=== PATIENT | male | born 1950 | race Caucasian/White ===

== ENCOUNTER 2023-10-29 05:34 | Day surgery (SDC) | payer MEDICARE ==
--- NOTE | 2023-10-27 21:13 | P.GSHP ---
History of Present Illness H&P Date: 10/27/23 Chief Complaint: Gross hematuria The patient is a 73-year-old white male with a history of metastatic castrate sensitive prostate cancer, treated with androgen deprivation therapy, Erleada, and Xgeva. He also has a history of kidney stones and recently experienced gross hematuria. CT scan showed bilateral renal calculi. Mild left hydronephrosis was noted, due to an 8 mm left UPJ calculus. Alternative treatment options were reviewed, and he has elected to undergo ureteroscopy with laser lithotripsy. - Cardiovascular Cardiovascular: Reports high blood pressure - Genitourinary (Male) Genitourinary: Reports hematuria, Reports kidney stones Past Medical History Past Medical History: Atrial Fibrillation, Cancer, Diabetes Mellitus, Hyperlipidemia, Hypertension Additional Past Medical History / Comment(s): kidney stones, past hx. a-fib 20 yrs. ago, recent dizzy spells & wore heart monitor recently, no problems found, had medication adjustment, hx. prostate cancer & spot found on spine 2019-had radiation & oral chemo History of Any Multi-Drug Resistant Organisms: None Reported Past Surgical History: Heart Catheterization With Stent, Orthopedic Surgery Additional Past Surgical History / Comment(s): 2 stents total, cysto/litho w/stent, arthroscopy right knee Past Anesthesia/Blood Transfusion Reactions: No Reported Reaction Date of Last Stent Placement:: 2019 Smoking Status: Former smoker - Past Family History Mother Family Medical History: No Reported History Medications and Allergies Home Medications Medication Instructions Recorded Confirmed Type Apalutamide [Erleada] 120 mg PO HS 10/27/23 10/27/23 History Aspirin 81 mg PO HS 10/27/23 10/27/23 History Atorvastatin [Lipitor] 40 mg PO HS 10/27/23 10/27/23 History Clopidogrel [Plavix] 75 mg PO DAILY 10/27/23 10/27/23 History dilTIAZem HCL [Cardizem CD] 360 mg PO DAILY 10/27/23 10/27/23 History lisinopriL [Zestril] 2.5 mg PO HS 10/27/23 10/27/23 History metFORMIN HCL [Glucophage] 500 mg PO BID 10/27/23 10/27/23 History Allergies Allergy/AdvReac Type Severity Reaction Status Date / Time Penicillins AdvReac Rash/Hives Verified 10/27/23 15:10 [id number] Reductase AdvReac muscle Verified 10/27/23 15:10 Inhibitor aches Surgical - Exam - General well developed, well nourished, no distress - Respiratory normal respiratory effort - Abdomen Abdomen: soft, non tender, no guarding, no rigid, no rebound - Genitourinary normal penis with no external lesions, testicles non-tender - Psychiatric oriented to time, oriented to person, oriented to place, speech is normal, memory intact Results - Imaging CT scan - abdomen: report reviewed, image reviewed Assessment and Plan (1) Calculus of ureter Status: Acute Code(s): N20.1 - CALCULUS OF URETER SNOMED Code(s): 91803001 (2) Calculus of kidney Status: Acute Code(s): N20.0 - CALCULUS OF KIDNEY SNOMED Code(s): 91430903 Plan: Cystoscopy, left retrograde pyelogram, left ureteroscopy with Holmium laser lithotripsy and stone basketing, left ureteral stent insertion. The procedure has been reviewed in detail with the patient and his . They have been made aware of potential risks, which include anesthesia, bleeding, infection, ureteral injury, and inability to successfully remove the calculus.
[2023-10-29] MEDS ORDERED: LACTATED RINGERS 1,000 ML IV SCH (06:17)
[2023-10-29] MEDS ORDERED: DEXAMETHASONE SOD PHOSPHATE 4 MG/ML 1 ML VIAL IV ONE (06:17)
[2023-10-29] MEDS ORDERED: ONDANSETRON 4 MG/2 ML VIAL IVP ONE (06:17)
[2023-10-29] MEDS ORDERED: MIDAZOLAM 2 MG/2 ML VIAL IV PRN (07:00)
[2023-10-29] MEDS ORDERED: HYDROmorphone 0.5 MG/0.5 ML SYRINGE IVP PRN (07:00)
[2023-10-29 07:02] LABS: Glucose,Whole Blood 149 mg/dL (70-110)
[2023-10-29] MEDS ORDERED: SUCCINYLCHOLINE CHLORIDE 200 MG/10 ML VIAL IV ONE (07:25)
[2023-10-29] MEDS ORDERED: NEOSTIGMINE 1 MG/ML 10 ML VIAL ONE (07:25)
[2023-10-29] MEDS ORDERED: fentaNYL (PF) 50 MCG/ML 2 ML AMP ONE (07:25)
[2023-10-29] MEDS ORDERED: ROCURONIUM 10 MG/ML (5 ML VIAL) IV ONE (07:25)
[2023-10-29] MEDS ORDERED: ePHEDrine 50 MG/ML 1 ML VIAL ONE (07:25)
[2023-10-29] MEDS ORDERED: LIDOCAINE 1% INJ 10MG/ML (20 ML MDV) ONE (07:25)
[2023-10-29] MEDS ORDERED: PROPOFOL 10 MG/ML 20 ML VIAL IV ONE (07:25)
[2023-10-29] MEDS ORDERED: GLYCOPYRROLATE 0.2 MG/ML 2 ML VIAL ONE (07:25)
[2023-10-29] MEDS ORDERED: KETOROLAC 15 MG/ML 1 ML VIAL ONE (07:25)
[2023-10-29] MEDS ORDERED: IOPAMIDOL-370 50ML BTL MISCELLANE ONE (08:05)
--- NOTE | 2023-10-29 08:26 | XR ---
EXAMINATION TYPE: XR KUB DATE OF EXAM: 10/29/2023 Comparison: None Clinical History: 73-year-old male N20.0 left renal calculi Findings: Lung bases are clear. Supine imaging limited for assessment of free air. There are bilateral renal calculi. On the left, co uple measuring up to 8 mm are present. Approximately 3 on the right, largest measuring 6 mm. Bowel content obscures much of the renal shadows. Moderate stool is present throughout. No dilated small bowel. Prominent bridging endplate spondylosis in the lumbar spine. Impression: 1. Bilateral nephrolithiasis measuring up to 6 mm on the right and 8 mm on the left. 2. Moderate stool burden. No evidence for bowel obstruction.
--- NOTE | 2023-10-29 09:50 | P.OP ---
Date of Procedure: 10/29/23 Preoperative Diagnosis: Left renal calculi Postoperative Diagnosis: Same Procedure(s) Performed: Cystoscopy, left retrograde pyelogram, left ureteroscopy with Holmium laser lithotripsy and stone basketing, left ureteral stent insertion Anesthesia: RAYO Surgeon: Yao Gatica Estimated Blood Loss (ml): 20 IV fluids (ml): 500 Pathology: other (Calculus fragments, sent for chemical analysis) Condition: stable Disposition: PACU Indications for Procedure: The patient is a 73-year-old white male with a history of metastatic castrate sensitive prostate cancer, treated with androgen deprivation therapy, Erleada, and Xgeva. He also has a history of kidney stones and recently experienced gross hematuria. CT scan showed bilateral renal calculi. Mild left hydronephrosis was noted, due to an 8 mm left UPJ calculus. Alternative treatment options were reviewed, and he has elected to undergo ureteroscopy with laser lithotripsy. Operative Findings: Multiple left renal calculi, removed via laser fragmentation and basketing. Description of Procedure: The patient was taken to the operating room and placed in the dorsolithotomy position, with legs supported in Jasson stirrups. The external genitalia was prepped and draped sterilely. The 30 lens was used to introduce the 21-[place] Martin cystoscopic sheath through the urethra and into the bladder under direct vision. The prostatic urethra showed no obstruction. The bladder was examined in its entirety. Both ureteral orifices were normal anatomic location and configuration. No tumors or foreign bodies were seen. Using a 10-[place] cone- tipped catheter, a left retrograde pyelogram was performed. The distal half of the left ureter appeared to be medially deviated, with areas of narrowing. There was no hydronephrosis. The renal pelvic calculus was seen as a filling defect. A 0.038 inch Glidewire was passed through the cystoscope. The ureteral orifice was cannulated, and the Glidewire was advanced up to the renal pelvis. The cystoscope was removed, and an 11/13-[place] ureteral access catheter was passed over the wire, up to the proximal ureter. There was no resistance in passing the ureteral access catheter. The Martin MymCartra flexible ureteroscope was then passed through the ureteral access catheter sheath, up to the renal pelvic stone. The 272 micron Holmium laser probe was passed through the ureteroscope, and lithotripsy was performed. Fragments were removed using a 1.9-[place] 0 tip nitinol basket. Once this was completed, each calyx was examined. Multiple calculi were encountered within mid and lower pole calyces, the largest being within a lower pole calyx. These were also fragmented and removed via stone basketing. The only residual calculus fragments were within a lower pole calyx, none exceeding 1 mm in size. The ureteroscope was withdrawn. There was no evidence of ureteral trauma. The Glidewire was passed through the ureteral access catheter sheath, which was removed. The Glidewire was backloaded into the cystoscope, which was passed into the bladder. A 26 cm, 4.8-[place] double-J ureteral stent was placed over the wire. Proper stent positioning was verified fluoroscopically and endoscopically. The bladder was emptied and the cystoscope removed. The patient tolerated the procedure well and was taken to the recovery room in stable condition. MUSIC ROCKS Report: Procedure Acuity: Semi-Urgent Stone Size and Location: Multiple left renal calculi, largest 8 mm within renal pelvis Ureteral Dilation: No Ureteral Access Sheath Used: Yes Stone Sent for Analysis: Yes All Stones/Fragments Were Removed with a Basket: Yes Complications: No Preoperative Antibiotics Given: Yes Stent Placed: Yes If Stent Placed, Was String Left Attached: No If Stent Placed, When is it to be Removed: 2 weeks Discharge Medications: [place], tamsulosin
[2023-10-29 10:04] VITALS: TEMP 97.1
--- NOTE | 2023-10-29 10:14 | FL ---
EXAMINATION TYPE: FL guidance operating room Intraoperative/procedural fluoroscopic services were pro vided. Total fluoroscopy time is 1 minute 1 seconds with a total of 6 submitted images to PACS. Melyssa willams see the operative/procedural note for further details. DAP: 9.7650 Gycm2
[2023-10-29 10:40] LABS: Glucose,Whole Blood 192 mg/dL (70-110)
[2023-10-29 10:55] VITALS: BP 127/85; PULSE 63; RESP 17
== END 2023-10-29 11:00 | disposition home or self-care (01) ==
LOC: OR 05:34
PROVIDERS: ATTEND Urology
DX: N13.2 Hydronephrosis with renal and ureteral calculous obstruction (principal); I48.91 Unspecified atrial fibrillation; I10 Essential (primary) hypertension; E78.5 Hyperlipidemia, unspecified; E11.9 Type 2 diabetes mellitus without complications; Z79.02 Long term (current) use of antithrombotics/antiplatelets; Z79.84 Long term (current) use of oral hypoglycemic drugs; Z85.46 Personal history of malignant neoplasm of prostate; Z87.442 Personal history of urinary calculi; Z87.891 Personal history of nicotine dependence; Z88.0 Allergy status to penicillin; Z88.8 Allergy status to other drugs, medicaments and biological substances; Z79.899 Other long term (current) drug therapy
CPT/HCPCS: 52356; 82365; 74018; C2625; C1758; C1769; J0330; J1100; J2710; J0690; J2405; J2001; J3010; J1885; J2704; Q9967